=== PATIENT | female | born 1990 | race Caucasian/White ===

== ENCOUNTER 2016-12-29 22:30 | Emergency (ER) | payer OTHER ==
[2016-12-29 22:38] VITALS: TEMP 97.8; BMI 18.6
--- NOTE | 2016-12-29 23:46 | PDOC ---
History of Present Illness - General Chief Complaint: Lightheaded Stated Complaint: DIZZINESS Time Seen by Provider: 12/29/16 23:12 History Source: Patient Exam Limitations: No Limitations - History of Present Illness Initial Comments: 12/29/16 23:40 26yo Female patient presents to ED c/o dizziness. Patient reports symptoms began 3 days ago with lightheadedness while lying in bed and room spinning while standing. Patient reports LNMP: 1 month ago, but did take a test 2 days ago and was negative. She states no change in appetite but did become nauseous after eating about 1 hour ago. Denies smoking or drug use. Drinks alcohol socially. Patient denies any other complaints at this time. Patient also reports she ran out of her control x 1 week because she just moved to [facility] from [place], but has an appointment with a local [facility] this week. Timing/Duration: reports: other (3 days) Severity: Yes: moderate Associated Symptoms: reports: nausea/vomiting, other (Dizziness, lightheadedness.) Past History - Travel Traveled outside of the country in the last 30 days: No Close contact w/someone who was outside of country & ill: No - Past Medical History Allergies/Adverse Reactions: Allergies Allergy/AdvReac Type Severity Reaction Status Date / Time No Known Allergies Allergy Verified 12/29/16 22:36 Home Medications: Ambulatory Orders Meclizine HCl 25 mg PO TID PRN #21 tablet 12/30/16 Other medical history: denies - Psycho/Social/Smoking Cessation Hx Suicidal Ideation: No Smoking History: Never smoked Hx Alcohol Use: No Drug/Substance Use Hx: No Neuro Specific PMHX - Complaint Specific PMHX Glaucoma: No Herniated Disk: No Laminectomy: No Migraine: No Multiple Sclerosis: No Neuropathy: No TIA: No Review of Systems - Review of Systems Able to Perform ROS?: Yes Is the patient limited Israeli proficient: No Constitutional: No: Chills, Fever, Malaise, Night Sweats, Weakness Respiratory: No: Cough, Shortness of Breath, Stridor, Wheezing Cardiac (ROS): Yes: Lightheadedness. No: Chest Pain, Palpitations, Syncope, Chest Tightness ABD/GI: Yes: Nausea. No: Abd. Pain w/ defecation, Diarrhea, Poor Appetite, Poor Fluid Intake, Rectal Bleeding, Vomiting, Abdominal cramping : No: Burning, Dysuria, Discharge, Frequency, Flank Pain, Hematuria, Incontinence, Pain, Urgency Musculoskeletal: No: Back Pain Integumentary: No: Bruising, Erythema, Rash Neurological: Yes: Dizziness. No: Headache, Numbness, Paresthesia, Seizure, Tingling, Tremors, Weakness, Unsteady Gait, Ataxia All Other Systems: Reviewed and Negative *Physical Exam - Vital Signs Last Vital Signs Temp Pulse Resp BP Pulse Ox 97.8 F 84 18 126/74 100 12/29/16 22:36 12/29/16 22:36 12/29/16 22:36 12/29/16 22:36 12/29/16 22:36 - Physical Exam General Appearance: Yes: Nourished, Appropriately Dressed. No: Apparent Distress, Mild Distress, Moderate Distress, Severe Distress HEENT: positive: EOMI, DANIEL, Normal ENT Inspection, Normal Voice, Symmetrical, TMs Normal, Pharynx Normal. negative: Pharyngeal Erythema, Tonsillar Exudate, Tonsillar Erythema, Nasal Congestion, Rhinorrhea, TM Bulging, TM Dull, TM Erythema Neck: positive: Trachea midline, Normal Thyroid, Supple. negative: Stridor, Lymphadenopathy (R), Lymphadenopathy (L) Respiratory/Chest: positive: Lungs Clear, Normal Breath Sounds. negative: Respiratory Distress, Accessory Muscle Use, Labored Respiration, Rapid RR Cardiovascular: positive: Regular Rhythm, Regular Rate Gastrointestinal/Abdominal: positive: Normal Bowel Sounds, Soft. negative: Distended, Guarding, Rebound, Tenderness Musculoskeletal: positive: Normal Inspection. negative: CVA Tenderness Extremity: positive: Normal Capillary Refill, Normal Inspection, Normal Range of Motion Integumentary: positive: Normal Color, Dry, Warm. negative: Pale, Cold, Clammy , Diaphoresis, Hives, Rash Neurologic: positive: groundskeeper supervisor II-XII NML intact, Fully Oriented, Alert, Normal Mood/ Affect, Normal Response, Motor Strength /5 ED Treatment Course - LABORATORY CBC & Chemistry Diagram: 12/30/16 01:00 12/30/16 01:00 *DC/Admit/Observation/Transfer Diagnosis at time of Disposition: Vertigo - Discharge Dispostion Disposition: HOME Condition at time of disposition: Improved Admit: No - Prescriptions Prescriptions: Meclizine HCl 25 mg PO TID PRN #21 tablet PRN Reason: Dizziness/Vertigo - Referrals Referrals: Yoana Damon MD [Primary Care Provider] - Joel Rizvi MD [Staff Physician] - - Patient Instructions Printed Discharge Instructions: Benign Paroxysmal Positional Vertigo, DI for Vertigo, Vertigo (Alternative Therapy) Additional Instructions: FOLLOW UP WITH Jillian GARCIA (NEUROLOGY). CALL TO SCHEDULE APPOINTMENT. TAKE MEDICATIONS PRESCRIBED. IF SYMPTOMS WORSEN, OR ANY CONCERNS RETURN FOR FURTHER EVALUATION. IF YOU EXPERIENCE VOMITING, SEVERE HEADACHE, NECK PAIN, FEVER RETURN IMMEDIATELY. Print Language: MONEGASQUE - Post Discharge Activity Work/School Note: Back to Work
[2016-12-30 00:06] LABS: URINE APPEARANCE CLEAR; URINE BILIRUBIN NEGATIVE (NEGATIVE); URINE BLOOD NEGATIVE (NEGATIVE); URINE COLOR LTYELLOW; URINE GLUCOSE (UA) NEGATIVE (NEGATIVE); URINE KETONE NEGATIVE (NEGATIVE); URINE LEUK ESTERASE NEGATIVE (NEGATIVE); URINE NITRITE NEGATIVE (NEGATIVE); URINE PROTEIN NEGATIVE (NEGATIVE); URINE UROBILINOGEN NEGATIVE E.U./dl (0.2-1.0)
[2016-12-30] MEDS ORDERED: SODIUM CHLORIDE 1,000 ML IV STA (00:39)
[2016-12-30 01:18] LABS: BASOPHIL 0.6 % (0-2.0); EOSINOPHIL 2.8 % (0-4.5); MCH 29.9 pg (25.7-33.7); MEAN CELL VOLUME 90.7 fl (80-96); MEAN PLT VOLUME 9.8 fl (7.5-11.1); PLATELET COUNT 236 K/MM3 (134-434); RDW 14.4 % (11.6-15.6); WHITE BLOOD COUNT 7.5 K/mm3 (4.0-10.0)
[2016-12-30 01:45] LABS: ALBUMIN 3.6 g/dl (3.4-5.0); ANION GAP 10 (8-16); CALCIUM 8.5 mg/dL (8.5-10.1); CO2 23 mmol/L (21-32); CREATININE 0.4 mg/dL (0.55-1.02); GLUCOSE,RANDOM 106 mg/dL (74-106); SGOT/AST 13 U/L (15-37); SGPT/ALT 11 U/L (12-78)
[2016-12-30 01:46] LABS: ALK PHOS 67 U/L (45-117); BILIRUBIN,TOTAL 0.6 mg/dL (0.2-1.0); TOT PROT 6.9 g/dl (6.4-8.2)
--- NOTE | 2016-12-30 02:00 | PDOC ---
*Physical Exam - Vital Signs Last Vital Signs Temp Pulse Resp BP Pulse Ox 97.8 F 84 18 126/74 100 12/29/16 22:36 12/29/16 22:36 12/29/16 22:36 12/29/16 22:36 12/29/16 22:36 ED Treatment Course - LABORATORY CBC & Chemistry Diagram: 12/30/16 01:00 12/30/16 01:00 - ADDITIONAL ORDERS Additional order review: Laboratory Results 12/30/16 12/29/16 01:00 23:45 Sodium 142 Potassium 3.8 Chloride 109 H Carbon Dioxide 23 Anion Gap 10 BUN 9 Creatinine 0.4 L Creat Clearance w eGFR > 60 Random Glucose 106 Calcium 8.5 Total Bilirubin 0.6 AST 13 L ALT 11 L Alkaline Phosphatase 67 Total Protein 6.9 Albumin 3.6 Urine Color Ltyellow Urine Appearance Clear Urine pH 5.0 Ur Specific [place] 1.021 Urine Protein Negative Urine Glucose (UA) Negative Urine Ketones Negative Urine Blood Negative Urine Nitrite Negative Urine Bilirubin Negative Urine Urobilinogen Negative Ur Leukocyte Esterase Negative Urine HCG, Qual Negative 12/30/16 01:00 RBC 4.21 MCV 90.7 MCHC 33.0 RDW 14.4 MPV 9.8 Neutrophils % 44.0 Lymphocytes % 43.4 H Monocytes % 9.2 Eosinophils % 2.8 Basophils % 0.6 - Medications Given in the ED: ED Medications Discontinued Medications Generic Name Dose Route Start Last Admin Trade Name Freq PRN Reason Stop Dose Admin Sodium Chloride 1,000 mls @ 1,000 mls/hr 12/30/16 00:39 12/30/16 00:58 Normal Saline - IV 12/30/16 01:38 1,000 mls/hr ASDIR STA Administration Medical Decision Making - Medical Decision Making 12/30/16 02:00 agree with care from PATRICK Arana *DC/Admit/Observation/Transfer Diagnosis at time of Disposition: Vertigo - Discharge Dispostion Disposition: HOME - Prescriptions Prescriptions: Meclizine HCl 25 mg PO TID PRN #21 tablet PRN Reason: Dizziness/Vertigo - Referrals Referrals: Yoana Damon MD [Primary Care Provider] - Joel Rizvi MD [Staff Physician] - - Patient Instructions Printed Discharge Instructions: Vertigo (Alternative Therapy), Benign Paroxysmal Positional Vertigo, DI for Vertigo Additional Instructions: FOLLOW UP WITH Jillian GARCIA (NEUROLOGY). CALL TO SCHEDULE APPOINTMENT. TAKE MEDICATIONS PRESCRIBED. IF SYMPTOMS WORSEN, OR ANY CONCERNS RETURN FOR FURTHER EVALUATION. IF YOU EXPERIENCE VOMITING, SEVERE HEADACHE, NECK PAIN, FEVER RETURN IMMEDIATELY. Print Language: MICRONESIAN - Post Discharge Activity Work/School Note: Back to Work
[2016-12-30] MEDS ORDERED: MECLIZINE HCL 25 MG TABLET (FP) PO ONE (02:15)
[2016-12-30] MEDS ORDERED: MECLIZINE HCL 25 MG TABLET (FP) ONE (02:43)
[2016-12-30 03:14] VITALS: BP 140/85; PULSE 68
== END 2016-12-30 03:26 | disposition home or self-care (01) ==
LOC: JER 22:30
PROC: 3E0337Z Introduction of Electrolytic and Water Balance Substance into Peripheral Vein, Percutaneous Approach (ICD-10-PCS; principal; 2016-12-29)
DX: R42 Dizziness and giddiness (principal)
CPT/HCPCS: 36415; 80053; 81003; 84443; 84703; 85025; 86850; 86900; 86901; 99283-25